=== PATIENT | female | born 1990 | race Asian ===

== ENCOUNTER → 2016-10-22 | Outpatient (CLI) | payer OTHER ==
[~2016-10-22] MED LIST: GADAVIST IV PRN
--- NOTE | 2016-10-22 09:32 | DIAGNOSTIC IMAGING REPORT ---
MRI OF THE BRAIN COMBO; MRI OF THE PITUITARY GLAND, CLINICAL HISTORY: Hypothalamic mass. COMPARISON STUDY: No priors. TECHNIQUE: MRI of the brain was performed utilizing various T1 and T2-weighted sequences in the axial, sagittal, and coronal planes. Contrast-enhanced sequences were acquired following the administration of 11.5 cc of Gadavist. Additional high-resolution imaging was performed through the skull base to assess the pituitary gland. Dynamic post contrast coronal imaging of the pituitary gland was performed. FINDINGS: Brain parenchyma: The brain parenchyma is normal in appearance. There is no hemorrhage or mass effect. There is no restricted diffusion to suggest acute ischemia. No enhancing parenchymal mass lesion is identified on the postcontrast images. Moya-white matter differentiation is preserved. No extra-axial fluid collection is seen. The cerebellar tonsils are normal in configuration. Ventricles, sulci, and cisterns: Normal in configuration. Cavum septum pellucidum is incidentally noted. Pituitary and sella: The pituitary gland is normal in appearance. No hypoenhancing pituitary nodules identified in the infundibulum is midline. There is a 7 x 7 x 9 mm rounded nodule identified at the top of the sella turcica, located below the optic chiasm and posterior to the infundibulum. This is best seen on high-resolution coronal postcontrast image #10 and sagittal high-resolution postcontrast image #8. This is T1 isointense, T2 hypointense, and demonstrates only faint postcontrast enhancement. Intracranial vasculature: Normal flow voids are maintained at the skull base. Orbits: The bony orbits are grossly intact. Orbital contents are normal in appearance. Sinuses and mastoids: Clear. Calvarium: Unremarkable. Cervical cord: Partially visualized cervical spinal cord is normal in morphology and signal intensity. IMPRESSION: 1. No acute intracranial abnormality. 2. The pituitary gland is normal in appearance. 3. There is an indeterminant round 9 mm soft tissue nodule identified at the top of the sella and posterior to the infundibulum. This is pathologically indeterminant, and top differential considerations would include a pituitary hamartoma, a glioma, or other suprasellar lesion. Correlation with any prior imaging studies will be required. Electronically signed by: Shree Mehta M.D. 10/22/2016 9:31 AM Dictated Date/Time: 10/22/2016 9:02 AM
== END | disposition home or self-care (01) ==
LOC: C.MRI 07:35
PROVIDERS: ATTEND Internal Medicine Endocrinology, Diabetes & Metabolism
DX: E23.6 Other disorders of pituitary gland (principal)